=== PATIENT | female | born 1940 | race Caucasian/White ===

== ENCOUNTER 2017-10-13 15:31 | Emergency (ER) | payer OTHER ==
[~2017-10-13] VITALS: Ht 154.9 cm; Wt 56.7 kg
[2017-10-13] MEDS ORDERED: LISINOPRIL10 MG PO (15:57)
[2017-10-13] MEDS ORDERED: SYNTHROID50 MCG PO (15:58)
[2017-10-13] MEDS ORDERED: AMLODIPINE BESYL5 MG PO (15:59)
[2017-10-13] MEDS ORDERED: DROXIA200 MG PO (16:00)
== END 2017-10-13 18:33 | disposition home or self-care (01) ==
LOC: ER 15:31
DX: S01.121A Laceration with foreign body of right eyelid and periocular area, initial encounter (principal); W45.8XXA Other foreign body or object entering through skin, initial encounter; Y93.89 Activity, other specified; Y92.018 Other place in single-family (private) house as the place of occurrence of the external cause; Y99.8 Other external cause status

== ENCOUNTER 2022-08-21 09:01 | Inpatient (IN) | payer OTHER ==
[~2022-08-21] VITALS: Ht 162.6 cm; Wt 56.7 kg
[~2022-08-21 09:01] MED LIST: AMLODIPINE BESYL5 MG PO; DROXIA200 MG PO; LISINOPRIL10 MG PO; SYNTHROID50 MCG PO
[2022-08-21] MEDS ORDERED: ARIPIPRAZOLE2 MG (09:08)
[2022-08-21] MEDS ORDERED: CLONAZEPAM1 MG (09:08)
[2022-08-21] MEDS ORDERED: ESCITALOPRAM OX20 MG (09:08)
== END 2022-08-23 22:24 | disposition home or self-care (01) | DRG 482 ==
LOC: ER 09:01 → O/R 14:26 → SEC-K 14:26 → O/R 15:53 → SURH 19:50
PROVIDERS: Orthopaedic Surgery; ADMIT Internal Medicine; ATTEND Internal Medicine
PROC: 0QS636Z Reposition Right Upper Femur with Intramedullary Internal Fixation Device, Percutaneous Approach (ICD-10-PCS; principal; 2022-08-21 18:00)
DX: S72.141A Displaced intertrochanteric fracture of right femur, initial encounter for closed fracture (principal); I10 Essential (primary) hypertension; E03.9 Hypothyroidism, unspecified; W18.30XA Fall on same level, unspecified, initial encounter; Y93.01 Activity, walking, marching and hiking; Y92.002 Bathroom of unspecified non-institutional (private) residence as the place of occurrence of the external cause

== ENCOUNTER 2022-09-12 08:47 | Outpatient (CLI) | payer OTHER ==
[~2022-09-12 08:47] MED LIST changes: +ARIPIPRAZOLE2 MG; +CLONAZEPAM1 MG; +ESCITALOPRAM OX20 MG
== END 2022-09-12 09:10 | disposition home or self-care (01) ==
LOC: RAD 08:47
PROVIDERS: ATTEND Orthopaedic Surgery
DX: S72.141D Displaced intertrochanteric fracture of right femur, subsequent encounter for closed fracture with routine healing (principal)

== ENCOUNTER 2022-09-25 12:44 | Outpatient (CLI) | payer OTHER | END 2022-09-25 12:46 | disposition home or self-care (01) | LOC: NUCLEAR 12:44 | PROVIDERS: ATTEND Orthopaedic Surgery | DX: M81.0 Age-related osteoporosis without current pathological fracture (principal) ==

== ENCOUNTER 2022-10-17 08:16 | Outpatient (CLI) | payer OTHER | END 2022-10-17 08:22 | disposition home or self-care (01) | LOC: RAD 08:16 | PROVIDERS: ATTEND Orthopaedic Surgery | DX: S72.141D Displaced intertrochanteric fracture of right femur, subsequent encounter for closed fracture with routine healing (principal) ==

== ENCOUNTER 2022-11-29 08:18 | Outpatient (CLI) | payer OTHER | END 2022-11-29 08:26 | disposition home or self-care (01) | LOC: RAD 08:18 | PROVIDERS: ATTEND Orthopaedic Surgery | DX: M25.511 Pain in right shoulder (principal); S72.141D Displaced intertrochanteric fracture of right femur, subsequent encounter for closed fracture with routine healing ==

== ENCOUNTER 2023-01-09 12:29 | Outpatient (CLI) | payer OTHER | END 2023-01-09 12:39 | disposition home or self-care (01) | LOC: RAD 12:29 | PROVIDERS: ATTEND Orthopaedic Surgery | DX: S72.141D Displaced intertrochanteric fracture of right femur, subsequent encounter for closed fracture with routine healing (principal) ==

== ENCOUNTER 2023-02-05 12:03 | Outpatient (CLI) | payer OTHER | END 2023-02-05 12:09 | disposition home or self-care (01) | LOC: RAD 12:03 | PROVIDERS: ATTEND Orthopaedic Surgery | DX: S72.141G Displaced intertrochanteric fracture of right femur, subsequent encounter for closed fracture with delayed healing (principal) ==

== ENCOUNTER 2023-02-27 08:55 | Outpatient (CLI) | payer OTHER | END 2023-02-27 09:00 | disposition home or self-care (01) | LOC: MRI 08:55 | PROVIDERS: ATTEND Orthopaedic Surgery | DX: M25.511 Pain in right shoulder (principal); M75.41 Impingement syndrome of right shoulder | CPT/HCPCS: 73221 ==

== ENCOUNTER 2023-06-26 08:47 | Outpatient (CLI) | payer OTHER | END 2023-06-26 08:54 | disposition home or self-care (01) | LOC: TOM 08:47 | PROVIDERS: ATTEND Orthopaedic Surgery | DX: T84.84XD Pain due to internal orthopedic prosthetic devices, implants and grafts, subsequent encounter (principal); S72.141G Displaced intertrochanteric fracture of right femur, subsequent encounter for closed fracture with delayed healing ==

== ENCOUNTER → 2023-07-23 09:09 | Outpatient (CLI) | payer OTHER ==
[2023-07-23 10:52] LABS: HEMATOCRIT 39.2 % (36.0-45.00); HEMOGLOBIN 13.7 g/dL (12.0-15.00); MEAN CELL VOLUME 102.2 fL (80.00-100.00); MEAN CORPUSCULAR HEMOGLOBIN 35.7 pg (27.00-32.0); MEAN CORPUSCULAR HGB CONC 34.9 g/dl (32.0-36.0); PLATELET COUNT 568 K/uL (150-450); RED BLOOD COUNT 3.84 M/uL (4.00-6.00); RED CELL DISTRIBUTION WIDTH 13.6 % (11.5-14.5)
[2023-07-23 10:57] LABS: URINE APPEARANCE Clear; URINE BILIRRUBIN Negative (NEGATIVE); URINE BLOOD Negative; URINE COLOR Yellow; URINE GLUCOSE Negative (NEGATIVE); URINE LEUKOCYTE Trace; URINE NITRATE Negative; URINE PROTEIN Negative (NEGATIVE); URINE UROBILINOGEN 0.2 E.U./dl
[2023-07-23 10:58] LABS: URINE BACTERIA 202.8 uL (0.0-1933); URINE EPITHELIAL CELLS 11.2 uL (0.0-38.8); URINE RBC 4.1 uL (0.0-20.8); URINE WBC 4.7 uL (0.0-23.2)
[2023-07-23 11:11] LABS: COL EPI 107 SECONDS (82-175)
[2023-07-23 11:26] LABS: PARTIAL THROMBOPLASTIN TIME 28.4 SECONDS (22.0-34.0); PROTHROMBIN TIME 10.5 SECONDS (9.0-11.5)
[2023-07-23 11:39] LABS: ALBUMIN 4.1 gm/dL (3.4-5.0); BILIRUBIN TOTAL 0.48 mg/dL (0.3-1.2); CALCIUM 10.1 mg/dL (8.5-10.1); CREATININE SERUM 0.65 mg/dL (0.55-1.02); GFR 87.26; GLOBULINA 3.5 G/DL (2.4-3.5); POTASSIUM 5.29 mEq/L (3.5-5.1); TOTAL PROTEIN 7.6 gm/dL (6.4-8.2)
== END | disposition home or self-care (01) ==
LOC: LAB 09:09
PROVIDERS: ATTEND Orthopaedic Surgery
DX: D64.9 Anemia, unspecified (principal); E88.89 Other specified metabolic disorders; D68.8 Other specified coagulation defects; N39.0 Urinary tract infection, site not specified; Z22.322 Carrier or suspected carrier of Methicillin resistant Staphylococcus aureus; E11.9 Type 2 diabetes mellitus without complications; I10 Essential (primary) hypertension; I49.8 Other specified cardiac arrhythmias; Z76.89 Persons encountering health services in other specified circumstances

== ENCOUNTER 2023-08-12 06:00 | Day surgery (SDC) | payer OTHER ==
[~2023-08-12 06:00] MED LIST changes: +BENADRYL25 MG; +CITRACAL + D M1 EACH; +MELATONIN10 MG; +SYNTHROID 0.05 MG; +TYLENOL ARTHRI650 MG; +VITAMIN C500 M6; +VITAMIN D; +ZINC 30 MG; +[UNRECOGNIZED DRUG - OTHER]
== END 2023-08-12 17:50 | disposition home or self-care (01) ==
LOC: CIR.AMB 06:00
PROVIDERS: ATTEND Orthopaedic Surgery
DX: M70.61 Trochanteric bursitis, right hip (principal); T84.84XD Pain due to internal orthopedic prosthetic devices, implants and grafts, subsequent encounter